=== PATIENT | female | born 1940 | race Caucasian/White ===

== ENCOUNTER → 2024-04-22 15:07 | Outpatient (CLI) | payer MEDICARE, OTHER, SELFPAY ==
--- NOTE | 2024-04-22 15:14 | DI.CT.S_ITS ---
PROCEDURE: CT CHEST WO CON INDICATIONS: Hx of CLL with bibasilar worsening opacities. Eval change TECHNIQUE: Noncontrast 5 mm thick sections acquired from the pulmonary apices to the posterior costophrenic angles. 1 mm lung window, 5 mm thick coronal and sagittal and 7 mm axial MIP reformats were then acquired. For radiation dose reduction, the following was used: automated exposure control, adjustment of mA and/or kV according to patient size. COMPARISON: [facility], CT, CT CHEST WITHOUT CONTRAST, 04/08/2024, 17:00. FINDINGS: Image quality: Diagnostic Lungs and pleura: Incidentally noted azygos fissure. Bibasilar peribronchial thickening, mucous plugging, and mild bronchiectasis. There are diffuse centrilobular nodules, most confluent in the lower lobes. There is also involvement of the right upper lobe. Scattered scarring and atelectasis, particularly in the middle lobe and costophrenic angles. Overall severity is slightly decreased compared to 04/08/2024. Mediastinum, heart, and esophagus: Atherosclerotic calcifications. Mild wall thickening of the gastroesophageal junction. There is trace pericardial effusion. Annular calcifications and coronary calcifications. No pathologic lymph nodes by size criteria. Chest wall and thyroid: Unremarkable thyroid and chest wall. Possible breast calcifications may be dystrophic not well evaluated on CT. Upper abdomen: No gross abnormality on these noncontrast images. Bones: Degenerative changes. IMPRESSION: Infectious/inflammatory nodularity particularly in the lower lungs, with moderate peribronchial thickening, slightly decreased compared to 04/08/2024. There is background atelectasis, scarring, mucous plugging, and mild bronchiectasis. Consider continued imaging surveillance given provided oncologic history. No drainable pleural effusions. Other findings as above. Dictated by: Del Fraire M.D. on 04/22/2024 at 16:08 Approved by: Del Fraire M.D. on 04/22/2024 at 16:12
== END ==
PROVIDERS: PCP Internal Medicine; Referring Provider Student in an Organized Health Care Education/Training Program; Visit Provider Student in an Organized Health Care Education/Training Program
DX: C91.10 Chronic lymphocytic leukemia of B-cell type not having achieved remission (principal); R05.2 Subacute cough; R93.89 Abnormal findings on diagnostic imaging of other specified body structures; R91.8 Other nonspecific abnormal finding of lung field; J47.9 Bronchiectasis, uncomplicated; J98.11 Atelectasis; J98.4 Other disorders of lung
CPT/HCPCS: 71250; 99215

== ENCOUNTER → 2024-08-09 09:28 | Outpatient (CLI) | payer MEDICARE, OTHER, SELFPAY | PROVIDERS: PCP Internal Medicine; Referring Provider Student in an Organized Health Care Education/Training Program; Visit Provider Student in an Organized Health Care Education/Training Program | DX: J47.9 Bronchiectasis, uncomplicated (principal); R05.9 Cough, unspecified | CPT/HCPCS: 87070; 87116; 87205; 87206 ==